=== PATIENT | female | born 1955 ===

== ENCOUNTER 2019-01-25 00:47 | Emergency (ER) | payer SELFPAY ==
--- NOTE | 2019-01-25 10:56 | RAD ---
RIGHT KNEE FOUR VIEWS: 01/25/2019 HISTORY: Fall. Trauma. Pain. COMPARISON: None. FINDINGS: Mild medial compartment narrowing with osteophytes formation of the medial tibial plateau. There is m ild osteophyte formation involving the lateral tibial plateau as well. There is a laceration involvin g the soft tissues ventral to the proximal aspect of the patellar tendon on the lateral view. No asso ciated fracture or dislocation. No significant knee joint effusion. There is enthesophyte formation at the insertion of the quadriceps tendon and there is mild joint spa ce narrowing involving the patellofemoral interspace. IMPRESSION: Evidence of a laceration anteriorly. No acute fracture/dislocation or associated radiopaque foreign b javier. POS: [facility]
== END 2019-01-25 05:22 | disposition home or self-care (01) ==
LOC: ERS 00:47
DX: S81.011A Laceration without foreign body, right knee, initial encounter (principal); E03.9 Hypothyroidism, unspecified; W19.XXXA Unspecified fall, initial encounter
CPT/HCPCS: 12034; 90471